=== PATIENT | male | born 1975 | race Caucasian/White ===

== ENCOUNTER 2022-12-10 17:02 | Outpatient (CLI) | payer BC, SELFPAY ==
--- NOTE | ~2022-12-10 | CT_ITS ---
Non-contrast CT scan of the Abdomen and Pelvis Clinical indication: Erectile dysfunction due to arterial insufficiency Technique: 2.5 mm axial scans were obtained through the abdomen and pelvis without intravenous or or al contrast. Dose reduction technique was used on this scan by utilizing automated exposure control a nd iterative reconstruction technique. The dose-length product (DLP) was 1159.65 mGy-cm. Findings: Images through the lung bases reveal 5 mm focal groundglass opacity in the right middle lo be (axial image 14). Gikuz-fj-crjnxlbm hiatal hernia noted. The liver, spleen, pancreas, kidneys, and adrenals appear normal. Cholecystectomy clips present. Ther e is no aortic aneurysm. There is no evidence of bowel obstruction. Images through the pelvis were performed. There is no evidence of ascites or lymphadenopathy. Urinary bladder unremarkable. Prostate gland and seminal vesicles are unremarkable. Penile implant with rese rvoir present. Impression: Pjrlj-fo-tphenyin hiatal hernia. No other significant abnormality seen in the abdomen or pelvis. 5 mm groundglass opacity right middle lobe. According to Fleischner Society criteria, no further foll ow-up required. Reviewed, dictated and finalized at location . Impression: Yjhdr-jy-glzpxcuk hiatal hernia. No other significant abnormality seen in the abdomen or pelvis. 5 mm groundglass opacity right middle lobe. According to Fleischner Society cri teria, no further follow-up required.
== END 2022-12-10 17:03 | disposition home or self-care (01) ==
DX: N52.01 Erectile dysfunction due to arterial insufficiency (principal); K44.9 Diaphragmatic hernia without obstruction or gangrene; R91.8 Other nonspecific abnormal finding of lung field
CPT/HCPCS: 74176